=== PATIENT | female | born 1935 | race Caucasian/White ===

== ENCOUNTER 2018-12-26 07:16 | Inpatient (IN) | payer MEDICARE, OTHER ==
[2018-12-26] MEDS ORDERED: ASPIRIN 81 MG PO STA (08:07)
[2018-12-26] MEDS ORDERED: NITROGLYCERIN OINT 1 INCH/GM PACKET TOPICAL STA (08:07)
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
[2018-12-26 08:20] LABS: Basophils % (A) 1 %; Eosinophils # (A) 0.2 k/uL (0-0.7); Eosinophils % (A) 4 %; HCT 43.6 % (34.0-46.0); HGB 14.6 gm/dL (11.4-16.0); Lymphocytes # (A) 1.1 k/uL (1.0-4.8); Lymphocytes % (A) 17 %; MCH 32.2 pg (25.0-35.0); MCHC 33.3 g/dL (31.0-37.0); MCV 96.5 fL (80.0-100.0); Mean Platelet Volume 6.9; Monocytes # (A) 0.4 k/uL (0-1.0); Monocytes % (A) 7 %; Neutrophils # (A) 4.3 k/uL (1.3-7.7); Neutrophils % (A) 68 %; Platelet Count 249 k/uL (150-450); RBC 4.52 m/uL (3.80-5.40); RDW 12.9 % (11.5-15.5); WBC 6.3 k/uL (3.8-10.6)
--- NOTE | 2018-12-26 08:29 | XR ---
EXAMINATION TYPE: XR chest 2V DATE OF EXAM: 12/26/2018 COMPARISON: NONE HISTORY: Shortness of breath TECHNIQUE: Frontal and lateral views of the chest are obtained. FINDINGS: Scattered senescent parenchymal changes noted. Hyperinflation compatible with COPD. No evidence for infiltrate. No evidence for atelectasis. Multiple right-sided rib fractures noted wit h underlying pleural parenchymal reaction. Heart size is stable. Mediastinal structures are stable and grossly unremarkable. No evidence for hilar prominence. Degenerative changes dorsal spine. IMPRESSION: 1. No evidence for acute pulmonary disease.
[2018-12-26 08:33] LABS: INR 0.9 (<1.2); Partial Thromboplastin Time 26.5 sec (22.0-30.0); Prothrombin Time 10.2 sec (9.0-12.0)
[2018-12-26 08:35] LABS: Albumin 4.1 g/dL (3.5-5.0); Anion Gap 11 mmol/L; Blood Urea Nitrogen 11 mg/dL (7-17); Calcium 9.1 mg/dL (8.4-10.2); Carbon Dioxide 24 mmol/L (22-30); Chloride 98 mmol/L (98-107); Glucose 150 mg/dL (74-99); Sodium 133 mmol/L (137-145); Total Bilirubin 0.8 mg/dL (0.2-1.3)
[2018-12-26 08:52] LABS: AST 30 U/L (14-36); Potassium 4.4 mmol/L (3.5-5.1)
[2018-12-26 08:53] LABS: ALT 26 U/L (9-52); Alkaline Phosphatase 72 U/L (38-126); Magnesium 1.9 mg/dL (1.6-2.3)
[2018-12-26] MEDS ORDERED: HEPARIN SODIUM,PORCINE 5,000 UNIT/ML 1 ML VIAL IV ONE (09:14)
[2018-12-26] MEDS ORDERED: NITROGLYCERIN SL TABS 0.4 MG TAB SUBLINGUAL PRN (11:24)
[2018-12-26] MEDS: HEPARIN SOD,PORK IN 0.45% NACL 25,000 UNIT in 0.45% NACL 1 250ML.BAG IV SCH (11:26)
[2018-12-26] MEDS: NITROGLYCERIN OINT 1 INCH/GM PACKET TOPICAL SCH ×2 (11:59→19:38)
[2018-12-26 12:01] VITALS: BMI 25.4
[2018-12-26] MEDS: hydrALAZINE HCL 25 MG TAB PO SCH (17:21)
[2018-12-26] MEDS: FERROUS SULFATE 325 MG TAB PO SCH (17:21)
[2018-12-26] MEDS: NON-FORMULARY DRUG (Glucosamine-Chondr 500-400mg 1 TAB) PO SCH ×2 (17:22→21:21)
[2018-12-26] MEDS: ATORVASTATIN 40 MG TAB PO SCH (21:13)
[2018-12-26] MEDS: ATENOLOL 50 MG TAB PO SCH (21:13)
[2018-12-27] MEDS: NITROGLYCERIN OINT 1 INCH/GM PACKET TOPICAL SCH ×2 (00:04→05:50)
[2018-12-27] MEDS: hydrALAZINE HCL 25 MG TAB PO SCH ×4 (00:05→20:19)
[2018-12-27] MEDS: LEVOTHYROXINE 100 MCG TAB PO SCH (06:05)
[2018-12-27 06:44] LABS: Cholesterol 136 mg/dL (<200); HDL Cholesterol 54 mg/dL (40-60); LDL Cholesterol,Calculated 56 mg/dL (0-99); Triglycerides 130 mg/dL (<150)
[2018-12-27] MEDS ORDERED: ASPIRIN 325 MG TAB PO SCH (09:00)
[2018-12-27] MEDS ORDERED: ASPIRIN 81 MG PO SCH (09:00)
[2018-12-27] MEDS ORDERED: REGADENOSON 0.4 MG/5 ML SYRINGE IV ONE ×2 (09:57→10:48)
[2018-12-27] MEDS ORDERED: AMINOPHYLLINE 500 MG/20 ML VIAL IV PRN ×2 (09:57→10:48)
[2018-12-27] MEDS ORDERED: CAFFEINE CITRATE 60 MG/3 ML VIAL IV PRN ×2 (09:57→10:48)
[2018-12-27] MEDS: HEPARIN SOD,PORK IN 0.45% NACL 25,000 UNIT in 0.45% NACL 1 250ML.BAG IV SCH (10:06)
[2018-12-27] MEDS ORDERED: DIPYRIDAMOLE IV ONE (10:15)
[2018-12-27] MEDS ORDERED: SODIUM CHLORIDE 0.9% IV ONE (10:15)
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
--- NOTE | 2018-12-27 11:14 | HP ---
HISTORY AND PHYSICAL CHIEF COMPLAINT: Chest pain. HISTORY OF PRESENT ILLNESS: This is the first admission for this 83-year-old white female. She probably has some mild dementia and has trouble remembering things and has difficulty with providing history. She has had a cardiac cath in the past, but she does not remember when. It may have been many years ago. She cannot describe the pain, but it was not associated with diaphoresis or shortness of breath. She said that she felt a heaviness in her chest which radiated into her left arm. She came to the emergency room where studies were negative and she is admitted for evaluation. REVIEW OF SYSTEMS: She has had no neurologic deficits, CVAs, TIAs, change in the vision or hearing, cough, hemoptysis, chest pain, sputum production, orthopnea, PND, shortness of breath, history of pulmonary emboli, etc. She apparently has had some coronary artery disease in the past, but it is difficult to get a history. She is allergic to SULFA, SONIDO INHIBITORS, CODEINE and DEMEROL. She is on Norvasc, aspirin, atenolol, Lipitor, iron, vitamin D3, hydralazine, Prevacid, Demadex, and thyroid. SURGERY: She has had a spigelian herniorrhaphy, hysterectomy and one ovary removed. She does not smoke or drink. Studies in the emergency room demonstrated normal sinus rhythm and a left bundle branch block. BNP was . Her troponins were normal. PHYSICAL EXAM: Blood pressure 168/81 with a pulse of 110 and regular, respirations of 32 and she is afebrile. In general, she appeared well developed, well nourished, in no acute distress. Skin color is normal. Skin is warm and dry. Lymph nodes not enlarged. Head, ears, eyes, nose, mouth, and throat were normal. Neck veins not distended. Thyroid was not enlarged. Carotids are normal. Chest is clear. Cardiac exam demonstrated a grade 3/6 systolic murmur heard throughout the precordium. There is no transmission of the carotids. There was no S3, S4. Abdomen is soft and nontender without visceromegaly or masses. Bowel sounds present. Extremities are normal. NEUROLOGICAL: She is intact. IMPRESSION: 1. Unstable angina. 2. Coronary artery disease. 3. Cardiac murmur. 4. History of hypertension. 5. History of hyperlipidemia. 6. History of hypothyroidism. PLAN: 1. Bed rest. 2. IV fluids. 3. Serial EKGs and enzymes. 4. Echocardiogram. 5. Cardiology consult. CHEVY / TERESA: [id number] /
--- NOTE | 2018-12-27 11:40 | ECHOF ---
Referral Reason: MEASUREMENTS -------- HEIGHT: 154.9 cm WEIGHT: 60.8 kg BP: 144/70 RVIDd: 3.5 cm (< 3.3) IVSd: 0.8 cm (0.6 - 1.1) LVIDd: 4.4 cm (3.9 - 5.3) LVPWd: 1.0 cm (0.6 - 1.1) IVSs: 1.5 cm LVIDs: 2.8 cm LVPWs: 1.7 cm LA Diam: 3.9 cm (2.7 - 3.8) LAESV Index (A-L): 24.93 ml/m Ao Diam: 2.8 cm (2.0 - 3.7) AV Cusp: 1.5 cm (1.5 - 2.6) MV EXCURSION: 12.364 mm (> 18.000) MV EF SLOPE: 47 mm/s (70 - 150) EPSS: 0.5 cm MV E Dio: 0.94 m/s MV DecT: 314 ms MV A Dio: 1.18 m/s MV E/A Ratio: 0.80 AV maxP.44 mmHg AV meanP.60 mmHg RAP: 5.00 mmHg RVSP: 39.38 mmHg FINDINGS -------- Sinus rhythm. This was a technically adequate study. The left ventricular size is normal. Left ventricular wall thickness is normal. Overall left vent ricular systolic function is normal with, an EF between 60 - 65 %. The right ventricle is mildly enlarged. Normal LA size by volume 22+/-6 ml/m2. The right atrium is normal in size. There is mild aortic valve sclerosis. There is mild aortic stenosis present. Peak/mean gradient a cross the Aortic Valve is 14.44mmHg / 7.60mmHg. The mitral valve leaflets are mild to moderately thickened. Moderate mitral annular calcification present. Mild mitral regurgitation is present. Mild tricuspid regurgitation present. There is mild pulmonary hypertension. The right ventricular systolic pressure, as measured by Doppler, is 39.38mmHg. The pulmonic valve was not well visualized. The aortic root size is normal. Normal inferior vena cava with normal inspiratory collapse consistent with estimated right atrial pre ssure of 5 mmHg. There is no pericardial effusion. CONCLUSIONS -------- 1. Sinus rhythm. 2. This was a technically adequate study. 3. The left ventricular size is normal. 4. Left ventricular wall thickness is normal. 5. Overall left ventricular systolic function is normal with, an EF between 60 - 65 %. 6. The right ventricle is mildly enlarged. 7. Normal LA size by volume 22+/-6 ml/m2. 8. The right atrium is normal in size. 9. There is mild aortic valve sclerosis. 10. There is mild aortic stenosis present. 11. Peak/mean gradient across the Aortic Valve is 14.44mmHg / 7.60mmHg. 12. The mitral valve leaflets are mild to moderately thickened. 13. Moderate mitral annular calcification present. 14. Mild mitral regurgitation is present. 15. Mild tricuspid regurgitation present. 16. There is mild pulmonary hypertension. 17. The right ventricular systolic pressure, as measured by Doppler, is 39.38mmHg. 18. The pulmonic valve was not well visualized. 19. The aortic root size is normal. 20. Normal inferior vena cava with normal inspiratory collapse consistent with estimated right atrial pressure of 5 mmHg. 21. There is no pericardial effusion. ASSISTANT PRESS OPERATOR: Matilde Parks RDCS
[2018-12-27] MEDS: LACTOBACILLUS ACIDOPH & BULGAR 1 EACH PACKET PO SCH (12:29)
[2018-12-27] MEDS: amLODIPine 5 MG TAB PO SCH (12:29)
[2018-12-27] MEDS: NON-FORMULARY DRUG (Glucosamine-Chondr 500-400mg 1 TAB) PO SCH ×3 (12:29→20:23)
[2018-12-27] MEDS: PANTOPRAZOLE 40 MG TABLET PO SCH (12:29)
[2018-12-27] MEDS: ATENOLOL 50 MG TAB PO SCH ×2 (12:29→20:20)
[2018-12-27] MEDS: CHOLECALCIFEROL 1,000 UNIT TAB PO SCH (12:29)
[2018-12-27] MEDS: FUROSEMIDE 10 MG TAB PO SCH (12:29)
--- NOTE | 2018-12-27 12:35 | NM ---
"EXAMINATION TYPE: NM stress lexiscan cardiolite DATE OF EXAM: 12/27/2018 COMPARISON: NONE HISTORY: Chest pain TECHNIQUE: After the intravenous administration of 10.29 mCi Tc 99m Sestamibi - Cardiolite resting S PECT images acquired 45 minutes post injection. The patient received 0.4mg Lexiscan, 26.1 mCi Tc 99m Sestamibi - Stress images obtained [address] injection FINDINGS: Review of stress and rest SPECT images demonstrates small area of stress-induced reversibility involv ing the inferior wall and inferior septal portion myocardium.. Gated analysis shows reduced wall mot ion with an estimated left ventricular ejection fraction of 38 %. IMPRESSION: 1. Findings are suggestive of a area of stress-induced reversible ischemia involving the inferior wal l the myocardium 2. Ejection fraction of 38% A [place] level critical message alert has been initiated for Markie Mckinnon MD via the [employer] | Critical Results System on 12/27/2018 12:33 PM. This message alert has been sent to Madisyn Mckinnon MD via the preferences provided by the clinician for the receipt of Radiology Critical F indings. Message ID [id number]."
--- NOTE | 2018-12-27 13:56 | EST ---
EXERCISE STRESS AGE: 83 SEX: F HT: 61" WT: 134 PROTOCOL: Lexiscan Cardiolite Stress Test HEART RATE REST: 56 BLOOD PRESSURE REST: 188/78 MAXIMUM HEART RATE ACHIEVED: 79 MAXIMUM BLOOD PRESSURE: 157/75 INDICATIONS: Unstable angina. CLINICAL INFORMATION: Patient was given Lexiscan injection over a period of 15 seconds. Resting EKG shows a normal sinus rhythm with a QRS morphology suggestive of left bundle branch block pattern was noted. Occasional PVCs were noted. No significant ST-segment change from the baseline was noted. The results of the nuclear study will follow. MMODL / IJN: [id number] /
[2018-12-27] MEDS ORDERED: ALPRAZolam 0.25 MG TAB PO PRN (15:39)
[2018-12-27] MEDS ORDERED: ALPRAZolam 0.5 MG TAB PO PRN (15:39)
[2018-12-27] MEDS ORDERED: SODIUM CHLORIDE 0.9% 1,000 ML in EMPTY BAG 1 BAG IV ONE (15:39)
--- NOTE | 2018-12-27 15:42 | P.PN ---
Progress Note - Text Lexiscan stress test suggestive of inferior stress-induced reversible ischemia along the inferior wall. Ejection fraction 38%. We have discussed in great detail with the patient the findings of this report and have given her the option of following with her primary physical therapist assistant undergoing cardiac catheterization here tomorrow. She would prefer a cardiac cath here tomorrow. I have discussed the risks, benefits and alternative therapies for the above- mentioned procedure and for both sedation/analgesia as well as necessary blood product administration, if indicated, as they pertain to this patient. The patient has indicated understanding and acceptance of the risks and procedures discussed. Questions have been answered appropriately and she is agreeable to move forward with the above-stated procedure. This has been poor for tomorrow around noon time. She can have a very small light breakfast and nothing by mouth after 8 AM.
--- NOTE | 2018-12-27 15:47 | PN ---
PROGRESS NOTE DATE OF SERVICE: 12/27/2018 CHIEF COMPLAINT: Status post appendectomy. HISTORY OF PRESENT ILLNESS: This lady is doing fairly well. She is afebrile. She still has some pain but tolerating it well. She is eating. PHYSICAL EXAMINATION: Color is good. Hydration is good. Chest is clear. Cardiac exam is normal. IMPRESSION: Status post appendectomy. PLAN: No change in her program. Continue to follow her vital signs and encourage her to ambulate. MMODL / IJN: [id number] /
--- NOTE | 2018-12-27 16:17 | PN ---
PROGRESS NOTE CHIEF COMPLAINT: Chest pain. HISTORY OF PRESENT ILLNESS: This lady is doing well. She is not having any chest pain. Echocardiogram is being done. She has been seen by Cardiology. PHYSICAL EXAMINATION: Her chest is clear. The cardiac exam is unchanged and the murmurs are unchanged. Abdomen is soft and nontender. IMPRESSION: 1. Angina. 2. Coronary artery disease. 3. Cardiac murmur. PLAN: Await results of cardiac ultrasound. She may be able to go home today or tomorrow, depending on Cardiology's recommendations. MMODL / IJN: [id number] /
[2018-12-27] MEDS: ATORVASTATIN 40 MG TAB PO SCH (20:22)
[2018-12-28] MEDS: amLODIPine 5 MG TAB PO SCH (05:57)
[2018-12-28] MEDS: LEVOTHYROXINE 100 MCG TAB PO SCH (05:57)
[2018-12-28] MEDS: ASPIRIN 325 MG TAB PO SCH (05:57)
[2018-12-28] MEDS: PANTOPRAZOLE 40 MG TABLET PO SCH (05:57)
[2018-12-28] MEDS: ATENOLOL 50 MG TAB PO SCH ×2 (05:57→19:42)
[2018-12-28] MEDS: hydrALAZINE HCL 25 MG TAB PO SCH ×3 (05:58→19:43)
[2018-12-28] MEDS: NON-FORMULARY DRUG (Glucosamine-Chondr 500-400mg 1 TAB) PO SCH ×3 (05:58→19:42)
[2018-12-28] MEDS: FUROSEMIDE 10 MG TAB PO SCH (08:20)
[2018-12-28] MEDS: CHOLECALCIFEROL 1,000 UNIT TAB PO SCH (08:20)
[2018-12-28] MEDS ORDERED: LIDOCAINE 1% INJ 10MG/ML (20 ML MDV) ONE (10:14)
[2018-12-28] MEDS ORDERED: fentaNYL (PF) 50 MCG/ML 2 ML AMP ONE (10:15)
[2018-12-28] MEDS ORDERED: IV FLUID CONTINUATION 1,000 ML IV ONE (10:25)
[2018-12-28] MEDS ORDERED: MIDAZOLAM 2 MG/2 ML VIAL IV ONE (10:43)
[2018-12-28] MEDS ORDERED: LIDOCAINE 1% INJ 10MG/ML (20 ML MDV) SQ ONE (10:49)
[2018-12-28] MEDS ORDERED: NITROGLYCERIN SL TABS 0.4 MG TAB SUBLINGUAL ONE ×2 (10:59→11:00)
[2018-12-28] MEDS ORDERED: fentaNYL (PF) 50 MCG/ML 2 ML AMP IV ONE (11:03)
[2018-12-28] MEDS ORDERED: IOPAMIDOL-370 150ML BTL INJ ONE (11:30)
[2018-12-28] MEDS ORDERED: IOPAMIDOL-370 50ML BTL INJ ONE (11:30)
[2018-12-28] MEDS ORDERED: RX INFO: IV CONTRAST WAS GIVEN 1 EACH MISC MISCELLANE PRN (11:46)
[2018-12-28] MEDS: LACTOBACILLUS ACIDOPH & BULGAR 1 EACH PACKET PO SCH (12:01)
[2018-12-28] MEDS: FERROUS SULFATE 325 MG TAB PO SCH (12:09)
--- NOTE | 2018-12-28 12:11 | CC ---
CARDIAC CATHETERIZATION REPORT Mrs. Hayes is an 83-year-old female who was admitted with the symptoms suggestive of unstable angina syndrome. The patient has a known history of coronary artery disease in the past. The patient underwent a stress test. The stress test shows evidence of inferior wall ischemia. In view of that, the patient was recommended to have a cardiac catheterization for definitive diagnosis. Prior cardiac catheterization was reported to have a 60% stenosis in the mid LAD about 4 years ago and patient was advised medical treatment. PROCEDURE: Right groin was entered using Seldinger technique and micropuncture needle under ultrasound guidance and the #6-Romanian sheath was placed in. Selective coronary angiography was then performed in multiple projections. Selective multiple catheters were used to selectively engage the right coronary artery and it was unsuccessful. Subsequently, aortic root injection was performed which showed good visualization of the right coronary artery. Left main coronary artery is normal and patent. LAD is a good caliber blood vessel and gives rise to the diagonal branch. There is a mild irregularity in the mid LAD without any obstructive coronary artery disease. Circumflex coronary artery is dominant in distribution and gives rise to good size PLV and PDA branch. The distal circumflex coronary artery has 40% stenosis. The right coronary artery is average caliber blood vessel and it is smooth and does not show any evidence of obstructive coronary artery disease. FINAL IMPRESSION: This study reveals about 40% stenosis in the distal circumflex coronary artery, which is dominant in distribution. The right coronary artery does not show any significant abnormality and it is non dominant. Mild irregularity noted in LAD. RECOMMENDATIONS: Medical treatment. MMODL / IJN: [id number] /
--- NOTE | 2018-12-28 13:38 | PN ---
PROGRESS NOTE CHIEF COMPLAINT: Chest pain. HISTORY OF PRESENT ILLNESS: This lady is doing well. She has had no pain. She is going for a cardiac cath today. PHYSICAL EXAM: She is awake and alert and vital signs are normal. Chest is clear. Cardiac exam is normal. IMPRESSION: Unstable angina with coronary artery disease. PLAN: Cardiac cath today. MMODL / IJN: [id number] /
[2018-12-28] MEDS: ATORVASTATIN 40 MG TAB PO SCH (19:42)
[2018-12-29] MEDS: LEVOTHYROXINE 100 MCG TAB PO SCH ×2 (05:19→05:23)
[2018-12-29 07:56] VITALS: BP 186/80; PULSE 60; RESP 18; TEMP 97.6
[2018-12-29] MEDS: FUROSEMIDE 10 MG TAB PO SCH (08:25)
[2018-12-29] MEDS: CHOLECALCIFEROL 1,000 UNIT TAB PO SCH (08:25)
[2018-12-29] MEDS: hydrALAZINE HCL 25 MG TAB PO SCH (08:25)
[2018-12-29] MEDS: ATENOLOL 50 MG TAB PO SCH (08:26)
[2018-12-29] MEDS: PANTOPRAZOLE 40 MG TABLET PO SCH (08:26)
[2018-12-29] MEDS: ASPIRIN 325 MG TAB PO SCH (08:26)
[2018-12-29] MEDS: amLODIPine 5 MG TAB PO SCH (08:26)
[2018-12-29] MEDS: LACTOBACILLUS ACIDOPH & BULGAR 1 EACH PACKET PO SCH (08:26)
[2018-12-29] MEDS: NON-FORMULARY DRUG (Glucosamine-Chondr 500-400mg 1 TAB) PO SCH (08:26)
--- NOTE | 2018-12-30 06:32 | DS ---
DISCHARGE SUMMARY CHIEF COMPLAINT: Chest pain. HISTORY OF PRESENT ILLNESS AND PHYSICAL EXAM: Details of this lady's history and physical can be found in the initial workup. LABORATORY STUDIES: While she was in a hospital she had laboratory studies, details of which can be found in the laboratory section of her chart. COURSE IN THE HOSPITAL: After admission, she was placed on bedrest, started on intravenous fluids and had frequent monitoring of her chest pain and vital signs. She was seen by Cardiology and taken for cardiac cath. This was found to be unremarkable and it was recommended she could go home on usual activity, diet and medication. She will follow up with Cardiology and we will also see her in several days. FINAL DIAGNOSES: 1. Unstable angina pectoris. 2. Coronary artery disease. 3. Type 2 non-insulin dependent diabetes mellitus. 4. Hyperlipidemia. 5. Cardiac murmur. 6. Dementia, mild. OPERATIONS: Cardiac cath. CONSULTATIONS: Cardiology. She is improved. MMODL / JACKIEN: [id number] /
== END 2018-12-29 11:29 | disposition home or self-care (01) | DRG 287 ==
LOC: EC 07:16 → 1SOBS 11:33 → OBSVTOIN 12-27 13:34
PROVIDERS: ADMIT Family Medicine; ATTEND Family Medicine
PROC: 4A023N7 Measurement of Cardiac Sampling and Pressure, Left Heart, Percutaneous Approach (ICD-10-PCS; principal; 2018-12-28 10:30)
PROC: B2111ZZ Fluoroscopy of Multiple Coronary Arteries using Low Osmolar Contrast (ICD-10-PCS; 2018-12-28 10:30)
DX: I25.110 Atherosclerotic heart disease of native coronary artery with unstable angina pectoris (principal); F03.90 Unspecified dementia, unspecified severity, without behavioral disturbance, psychotic disturbance, mood disturbance, and anxiety; E11.9 Type 2 diabetes mellitus without complications; I44.7 Left bundle-branch block, unspecified; I10 Essential (primary) hypertension; R01.1 Cardiac murmur, unspecified; E78.5 Hyperlipidemia, unspecified; E06.3 Autoimmune thyroiditis; M19.90 Unspecified osteoarthritis, unspecified site; Z79.82 Long term (current) use of aspirin; Z79.890 Hormone replacement therapy; Z79.899 Other long term (current) drug therapy; Z87.891 Personal history of nicotine dependence; Z90.89 Acquired absence of other organs; Z90.710 Acquired absence of both cervix and uterus; Z87.440 Personal history of urinary (tract) infections; Z88.5 Allergy status to narcotic agent; Z88.2 Allergy status to sulfonamides; Z88.8 Allergy status to other drugs, medicaments and biological substances; Z80.3 Family history of malignant neoplasm of breast; Z83.3 Family history of diabetes mellitus; Z82.5 Family history of asthma and other chronic lower respiratory diseases; Z98.42 Cataract extraction status, left eye; Z98.41 Cataract extraction status, right eye; Z98.891 History of uterine scar from previous surgery; Z82.49 Family history of ischemic heart disease and other diseases of the circulatory system; Z82.61 Family history of arthritis
CPT/HCPCS: 36415; 71046; 76937; 78452; 80053; 80061; 83735; 83880; 84484; 85025; 85610; 85730; 93005; 93017; 93306; 93458; 96374; 99291